=== PATIENT | male | born 1960 | race Two or more races ===

== ENCOUNTER 2020-02-14 10:17 | Outpatient (CLI) | payer MEDICARE, MEDICAID ==
[2020-02-14 11:07] LABS: BASOPHILS # (AUTO) 0.1 /CMM (0.0-0.2); BASOPHILS % (AUTO) 0.8 % (0.0-2.0); EOSINOPHILS % (AUTO) 1.3 % (0.0-6.0); HEMATOCRIT 43 % (39-51); LYMPHOCYTES % (AUTO) 27.2 % (20.0-44.0); MEAN CORPUSCULAR HGB CONC 33 g/dl (31.0-36.0); MEAN CORPUSCULAR VOLUME 91 fL (80-96); MONOCYTES # (AUTO) 0.4 /CMM (0.1-1.30); MONOCYTES % (AUTO) 5.2 % (2.0-12.0); NEUTROPHILS # (AUTO) 4.7 /CMM (1.8-8.9); NEUTROPHILS % (AUTO) 65.5 % (43.0-81.0); PLATELET COUNT (AUTO) 291 /CMM (150-450); RED BLOOD CELL COUNT(AUTO) 4.74 MIL/uL (4.5-6.0); WHITE BLOOD COUNT (AUTO) 7.2 K/uL (4.3-11.0)
[2020-02-14 11:33] LABS: ALBUMIN 3.5 g/dL (3.4-5.0); BILIRUBIN,TOTAL 0.3 mg/dL (0.2-1.0); CALCIUM, SERUM 8.9 mg/dL (8.5-10.1); CREATININE 3.2 mg/dL (0.6-1.3); MAGNESIUM 2.3 mg/dL (1.8-2.4); PHOSPHORUS 3.5 mg/dL (2.5-4.9); POTASSIUM 4.7 mmol/L (3.5-5.1)
[2020-02-14 11:42] LABS: THYROID STIMULATING HORMONE 1.095 uIU/mL (0.358-3.74)
[2020-02-14 11:58] LABS: BILIRUBIN,URINE NEGATIVE (NEGATIVE); BLOOD, URINE NEGATIVE Ery/uL (NEGATIVE); COLOR,URINE YELLOW (YELLOW); LEUKOCYTE ESTERASE ,URINE NEGATIVE (NEGATIVE); NITRITE, URINE NEGATIVE (NEGATIVE); PROTEIN,URINE TRACE mg/dl (NEGATIVE); UGLUCOSE 100 MG/DL mg/dL (NEGATIVE); UROBILINOGEN,URINE 0.2 EU/dL (0.2)
[2020-02-14 11:58] LABS: C-REACTIVE PROTEIN 2.6 mg/dL (0.0-0.9)
[2020-02-14 17:40] LABS: BACTERIA,URINE Few /HPF (None Seen); RBC,URINE 0-2 /HPF (0-2); SPERM,URINE Few /HPF (None Seen); SQUAMOUS EPITHELIAL CELL,UR Few /HPF (None Seen); URINE AMORPHOUS URATE Moderate /HPF (None Seen)
[2020-02-15 08:12] LABS: FOLIC ACID > 20.0 ng/mL (>3.0)
== END 2020-02-14 23:59 | disposition home or self-care (01) ==
LOC: MSC 10:17
PROVIDERS: ATTEND Internal Medicine
DX: N40.0 Benign prostatic hyperplasia without lower urinary tract symptoms (principal); I10 Essential (primary) hypertension; E11.9 Type 2 diabetes mellitus without complications; I25.10 Atherosclerotic heart disease of native coronary artery without angina pectoris; Z98.61 Coronary angioplasty status; Z86.73 Personal history of transient ischemic attack (TIA), and cerebral infarction without residual deficits; E78.5 Hyperlipidemia, unspecified
CPT/HCPCS: 36415; 80053; 80061; 81001; 82043; 82306; 82570; 82607; 82746; 83036; 83735; 84100; 84155; 84439; 84443; 85025; 85652; 86140; G0463

== ENCOUNTER 2020-08-07 09:35 | Outpatient (CLI) | payer MEDICARE, MEDICAID ==
[2020-08-07 11:07] LABS: BASOPHILS % (AUTO) 0.6 % (0.0-2.0); EOSINOPHILS % (AUTO) 1.4 % (0.0-6.0); HEMATOCRIT 47 % (39-51); HEMOGLOBIN 15.4 g/dL (13.5-17.5); LYMPHOCYTES # (AUTO) 2.6 /CMM (0.8-4.8); LYMPHOCYTES % (AUTO) 32.2 % (20.0-44.0); MEAN CORPUSCULAR HGB CONC 33 g/dl (31.0-36.0); MEAN CORPUSCULAR VOLUME 90 fL (80-96); MONOCYTES # (AUTO) 0.6 /CMM (0.1-1.30); MONOCYTES % (AUTO) 7.6 % (2.0-12.0); NEUTROPHILS # (AUTO) 4.7 /CMM (1.8-8.9); NEUTROPHILS % (AUTO) 58.2 % (43.0-81.0); PLATELET COUNT (AUTO) 284 /CMM (150-450); RED BLOOD CELL COUNT(AUTO) 5.18 MIL/uL (4.5-6.0); WHITE BLOOD COUNT (AUTO) 8.1 K/uL (4.3-11.0)
[2020-08-07 11:13] LABS: ALBUMIN 3.8 g/dL (3.4-5.0); BILIRUBIN,TOTAL 0.5 mg/dL (0.2-1.0); CALCIUM, SERUM 10.2 mg/dL (8.5-10.1); CREATININE 2.9 mg/dL (0.6-1.3); POTASSIUM 4.8 mmol/L (3.5-5.1); TOTAL PROTEIN, SERUM 8.4 g/dL (6.4-8.2)
== END 2020-08-07 23:59 | disposition home or self-care (01) ==
LOC: MSC 09:35
PROVIDERS: ATTEND Internal Medicine
DX: Z51.89 Encounter for other specified aftercare (principal); I49.9 Cardiac arrhythmia, unspecified; Z79.01 Long term (current) use of anticoagulants; I42.9 Cardiomyopathy, unspecified; Z95.810 Presence of automatic (implantable) cardiac defibrillator; I10 Essential (primary) hypertension; E11.9 Type 2 diabetes mellitus without complications; Z79.4 Long term (current) use of insulin; I25.10 Atherosclerotic heart disease of native coronary artery without angina pectoris; Z95.1 Presence of aortocoronary bypass graft; Z86.73 Personal history of transient ischemic attack (TIA), and cerebral infarction without residual deficits; N40.0 Benign prostatic hyperplasia without lower urinary tract symptoms; E78.5 Hyperlipidemia, unspecified; Z79.899 Other long term (current) drug therapy
CPT/HCPCS: 36415; 80053; 83036; 85025; G0463

== ENCOUNTER 2020-08-16 12:15 | Outpatient (CLI) | payer MEDICARE, OTHER | END 2020-08-16 23:59 | disposition home or self-care (01) | LOC: MSC 12:15 | PROVIDERS: ATTEND Internal Medicine | DX: Z01.818 Encounter for other preprocedural examination (principal); H26.9 Unspecified cataract; I12.9 Hypertensive chronic kidney disease with stage 1 through stage 4 chronic kidney disease, or unspecified chronic kidney disease; E11.22 Type 2 diabetes mellitus with diabetic chronic kidney disease; N18.4 Chronic kidney disease, stage 4 (severe); Z79.4 Long term (current) use of insulin; I42.9 Cardiomyopathy, unspecified; Z95.810 Presence of automatic (implantable) cardiac defibrillator; I49.9 Cardiac arrhythmia, unspecified; I25.10 Atherosclerotic heart disease of native coronary artery without angina pectoris; Z95.1 Presence of aortocoronary bypass graft; Z86.73 Personal history of transient ischemic attack (TIA), and cerebral infarction without residual deficits; N40.0 Benign prostatic hyperplasia without lower urinary tract symptoms; E78.5 Hyperlipidemia, unspecified; Z79.899 Other long term (current) drug therapy ==

== ENCOUNTER 2021-01-01 09:50 | Outpatient (CLI) | payer MEDICARE, OTHER ==
[2021-01-01 11:18] LABS: BASOPHILS % (AUTO) 0.6 % (0.0-2.0); EOSINOPHILS % (AUTO) 1.5 % (0.0-6.0); HEMATOCRIT 46 % (39-51); HEMOGLOBIN 15.2 g/dL (13.5-17.5); LYMPHOCYTES # (AUTO) 1.9 K/uL (0.8-4.8); MEAN CORPUSCULAR HGB CONC 33 g/dl (31.0-36.0); MEAN CORPUSCULAR VOLUME 91 fL (80-96); MONOCYTES # (AUTO) 0.4 K/uL (0.1-1.30); NEUTROPHILS # (AUTO) 4.2 K/uL (1.8-8.9); NEUTROPHILS % (AUTO) 62.9 % (43.0-81.0); PLATELET COUNT (AUTO) 325 K/uL (150-450); RED BLOOD CELL COUNT(AUTO) 5.01 MIL/uL (4.5-6.0); WHITE BLOOD COUNT (AUTO) 6.7 K/uL (4.3-11.0)
[2021-01-01 12:21] LABS: C-REACTIVE PROTEIN 0.3 mg/dL (0.0-0.9); PROSTATE SPECIFIC ANTIGEN SCR 0.65 ng/mL (0.00-4.00); THYROID STIMULATING HORMONE 1.136 uIU/mL (0.358-3.74)
[2021-01-01 12:27] LABS: ALBUMIN 3.6 g/dL (3.4-5.0); BILIRUBIN,TOTAL 0.4 mg/dL (0.2-1.0); CALCIUM, SERUM 8.7 mg/dL (8.5-10.1); CREATININE 2.6 mg/dL (0.6-1.3); MAGNESIUM 2.1 mg/dL (1.8-2.4); PHOSPHORUS 3.1 mg/dL (2.5-4.9); POTASSIUM 4.6 mmol/L (3.5-5.1); TOTAL PROTEIN, SERUM 8.3 g/dL (6.4-8.2)
== END 2021-01-01 23:59 | disposition home or self-care (01) ==
LOC: MSC 09:50
PROVIDERS: ATTEND Internal Medicine
DX: I49.9 Cardiac arrhythmia, unspecified (principal); Z95.818 Presence of other cardiac implants and grafts; Z79.82 Long term (current) use of aspirin; R33.9 Retention of urine, unspecified; N40.0 Benign prostatic hyperplasia without lower urinary tract symptoms; I13.0 Hypertensive heart and chronic kidney disease with heart failure and stage 1 through stage 4 chronic kidney disease, or unspecified chronic kidney disease; E11.22 Type 2 diabetes mellitus with diabetic chronic kidney disease; N18.4 Chronic kidney disease, stage 4 (severe); I50.9 Heart failure, unspecified; Z79.4 Long term (current) use of insulin; I25.10 Atherosclerotic heart disease of native coronary artery without angina pectoris; E78.5 Hyperlipidemia, unspecified
CPT/HCPCS: 36415; 80053; 80061; 82306; 82607; 82746; 83036; 83735; 84100; 84153; 84439; 84443; 85025; 85652; 86140; G0463

== ENCOUNTER 2021-08-06 10:17 | Outpatient (CLI) | payer MEDICARE, OTHER ==
[2021-08-06 11:49] LABS: BASOPHILS % (AUTO) 0.7 % (0.0-2.0); EOSINOPHILS % (AUTO) 2.8 % (0.0-6.0); HEMATOCRIT 44 % (39-51); HEMOGLOBIN 14.6 g/dL (13.5-17.5); LYMPHOCYTES # (AUTO) 2.2 K/uL (0.8-4.8); LYMPHOCYTES % (AUTO) 33.9 % (20.0-44.0); MEAN CORPUSCULAR HGB CONC 33 g/dl (31.0-36.0); MEAN CORPUSCULAR VOLUME 85 fL (80-96); MONOCYTES # (AUTO) 0.5 K/uL (0.1-1.30); MONOCYTES % (AUTO) 7.2 % (2.0-12.0); NEUTROPHILS # (AUTO) 3.6 K/uL (1.8-8.9); NEUTROPHILS % (AUTO) 55.4 % (43.0-81.0); PLATELET COUNT (AUTO) 292 K/uL (150-450); RED BLOOD CELL COUNT(AUTO) 5.15 MIL/uL (4.5-6.0); WHITE BLOOD COUNT (AUTO) 6.5 K/uL (4.3-11.0)
[2021-08-06 12:19] LABS: FREE T4 (FREE THYROXINE) 1.18 ng/dL (0.76-1.46); THYROID STIMULATING HORMONE 1.529 uIU/mL (0.358-3.74)
[2021-08-06 12:31] LABS: C-REACTIVE PROTEIN 1.3 mg/dL (0.0-0.9)
[2021-08-06 12:35] LABS: BILIRUBIN,TOTAL 0.6 mg/dL (0.2-1.0); CALCIUM, SERUM 8.3 mg/dL (8.5-10.1); MAGNESIUM 2.2 mg/dL (1.8-2.4); PHOSPHORUS 4.1 mg/dL (2.5-4.9); POTASSIUM 3.8 mmol/L (3.5-5.1); TOTAL PROTEIN, SERUM 7.2 g/dL (6.4-8.2)
== END 2021-08-06 23:59 | disposition home or self-care (01) ==
LOC: MSC 10:17
PROVIDERS: ATTEND Internal Medicine
DX: I49.9 Cardiac arrhythmia, unspecified (principal); G93.3 Postviral and related fatigue syndromes; E11.22 Type 2 diabetes mellitus with diabetic chronic kidney disease; I13.0 Hypertensive heart and chronic kidney disease with heart failure and stage 1 through stage 4 chronic kidney disease, or unspecified chronic kidney disease; N18.4 Chronic kidney disease, stage 4 (severe); I50.9 Heart failure, unspecified; Z79.4 Long term (current) use of insulin; N40.0 Benign prostatic hyperplasia without lower urinary tract symptoms; I25.10 Atherosclerotic heart disease of native coronary artery without angina pectoris; E78.5 Hyperlipidemia, unspecified
CPT/HCPCS: 36415; 80053; 80061; 83036; 83735; 84100; 84439; 84443; 85025; 85652; 86140; G0463

== ENCOUNTER → 2021-08-09 | Outpatient (CLI) | payer MEDICARE, OTHER | END | disposition home or self-care (01) | LOC: MSC 14:00 | PROVIDERS: ATTEND Internal Medicine | DX: E78.1 Pure hyperglyceridemia (principal); I49.9 Cardiac arrhythmia, unspecified; Z79.82 Long term (current) use of aspirin; E11.22 Type 2 diabetes mellitus with diabetic chronic kidney disease; I13.0 Hypertensive heart and chronic kidney disease with heart failure and stage 1 through stage 4 chronic kidney disease, or unspecified chronic kidney disease; N18.4 Chronic kidney disease, stage 4 (severe); I50.9 Heart failure, unspecified; Z79.4 Long term (current) use of insulin; N40.0 Benign prostatic hyperplasia without lower urinary tract symptoms; I25.10 Atherosclerotic heart disease of native coronary artery without angina pectoris ==

== ENCOUNTER 2021-10-22 10:34 | Outpatient (CLI) | payer MEDICARE, OTHER | END 2021-10-22 23:59 | disposition home or self-care (01) | LOC: MSC 10:34 | PROVIDERS: ATTEND Internal Medicine | DX: I49.9 Cardiac arrhythmia, unspecified (principal); I34.0 Nonrheumatic mitral (valve) insufficiency; Z95.2 Presence of prosthetic heart valve; E11.22 Type 2 diabetes mellitus with diabetic chronic kidney disease; I13.0 Hypertensive heart and chronic kidney disease with heart failure and stage 1 through stage 4 chronic kidney disease, or unspecified chronic kidney disease; N18.4 Chronic kidney disease, stage 4 (severe); I50.9 Heart failure, unspecified; Z79.4 Long term (current) use of insulin; E78.5 Hyperlipidemia, unspecified; N40.0 Benign prostatic hyperplasia without lower urinary tract symptoms; I25.10 Atherosclerotic heart disease of native coronary artery without angina pectoris ==

== ENCOUNTER → 2021-12-05 | Outpatient (CLI) | payer MEDICARE, OTHER | END | disposition home or self-care (01) | LOC: MSC 10:30 | PROVIDERS: ATTEND Internal Medicine | DX: E11.22 Type 2 diabetes mellitus with diabetic chronic kidney disease (principal); E11.65 Type 2 diabetes mellitus with hyperglycemia; I13.0 Hypertensive heart and chronic kidney disease with heart failure and stage 1 through stage 4 chronic kidney disease, or unspecified chronic kidney disease; N18.4 Chronic kidney disease, stage 4 (severe); I50.9 Heart failure, unspecified; Z79.4 Long term (current) use of insulin; E78.1 Pure hyperglyceridemia; I49.9 Cardiac arrhythmia, unspecified; I34.0 Nonrheumatic mitral (valve) insufficiency; Z95.2 Presence of prosthetic heart valve; I25.10 Atherosclerotic heart disease of native coronary artery without angina pectoris; N40.0 Benign prostatic hyperplasia without lower urinary tract symptoms ==

== ENCOUNTER 2022-05-13 11:08 | Outpatient (CLI) | payer MEDICARE, OTHER ==
[2022-05-13 11:35] LABS: BASOPHILS % (AUTO) 0.5 % (0.0-2.0); EOSINOPHILS % (AUTO) 1.3 % (0.0-6.0); HEMATOCRIT 48 % (39-51); HEMOGLOBIN 15.9 g/dL (13.5-17.5); LYMPHOCYTES # (AUTO) 2.3 K/uL (0.8-4.8); LYMPHOCYTES % (AUTO) 30.6 % (20.0-44.0); MEAN CORPUSCULAR HGB CONC 33 g/dl (31.0-36.0); MEAN CORPUSCULAR VOLUME 87 fL (80-96); MONOCYTES # (AUTO) 0.5 K/uL (0.1-1.30); MONOCYTES % (AUTO) 6.1 % (2.0-12.0); NEUTROPHILS # (AUTO) 4.6 K/uL (1.8-8.9); NEUTROPHILS % (AUTO) 61.5 % (43.0-81.0); PLATELET COUNT (AUTO) 194 K/uL (150-450); RED BLOOD CELL COUNT(AUTO) 5.53 MIL/uL (4.5-6.0); WHITE BLOOD COUNT (AUTO) 7.4 K/uL (4.3-11.0)
[2022-05-13 11:50] LABS: URINE TOTAL PROTEIN 65.3 mg/dL (0-11.9)
[2022-05-13 11:51] LABS: BILIRUBIN,URINE NEGATIVE (NEGATIVE); COLOR,URINE YELLOW (YELLOW); LEUKOCYTE ESTERASE ,URINE NEGATIVE (NEGATIVE); NITRITE, URINE NEGATIVE (NEGATIVE); PH,URINE 5.5 (5.0-8.0); PROTEIN,URINE 1+ mg/dl (NEGATIVE); UGLUCOSE 3+ mg/dL (NEGATIVE); UROBILINOGEN,URINE 0.2 EU/dL (0.2)
[2022-05-13 12:18] LABS: BACTERIA,URINE Few /HPF (None Seen); RBC,URINE 0-2 /HPF (0-2); SQUAMOUS EPITHELIAL CELL,UR Few /HPF (None Seen); WBC,URINE 0-2 /HPF (0-3)
[2022-05-13 12:25] LABS: ALBUMIN 3.3 g/dL (3.4-5.0); BILIRUBIN,TOTAL 0.7 mg/dL (0.2-1.0); CALCIUM, SERUM 8.5 mg/dL (8.5-10.1); MAGNESIUM 2.2 mg/dL (1.8-2.4); PHOSPHORUS 2.8 mg/dL (2.5-4.9); POTASSIUM 4.7 mmol/L (3.5-5.1); TOTAL PROTEIN, SERUM 7.5 g/dL (6.4-8.2)
[2022-05-13 12:32] LABS: C-REACTIVE PROTEIN 1.1 mg/dL (0.0-0.9); FREE T4 (FREE THYROXINE) 1.02 ng/dL (0.76-1.46); THYROID STIMULATING HORMONE 1.055 uIU/mL (0.358-3.74)
== END 2022-05-13 23:59 | disposition home or self-care (01) ==
LOC: MSC 11:08
PROVIDERS: ATTEND Internal Medicine
DX: M25.512 Pain in left shoulder (principal); R19.7 Diarrhea, unspecified; E11.22 Type 2 diabetes mellitus with diabetic chronic kidney disease; E11.65 Type 2 diabetes mellitus with hyperglycemia; I13.0 Hypertensive heart and chronic kidney disease with heart failure and stage 1 through stage 4 chronic kidney disease, or unspecified chronic kidney disease; N18.4 Chronic kidney disease, stage 4 (severe); I50.9 Heart failure, unspecified; Z79.4 Long term (current) use of insulin; E87.1 Hypo-osmolality and hyponatremia; E78.1 Pure hyperglyceridemia; I49.9 Cardiac arrhythmia, unspecified; I34.0 Nonrheumatic mitral (valve) insufficiency; Z95.2 Presence of prosthetic heart valve; I25.10 Atherosclerotic heart disease of native coronary artery without angina pectoris; N40.0 Benign prostatic hyperplasia without lower urinary tract symptoms
CPT/HCPCS: 80061; 73030; 85025; 83735; 83036; 84100; 85652; 81001; 36415; 84439; 82746; 84443; 82607; 80053; 86140; 82306; 82043; 82570; 84155; G0463

== ENCOUNTER 2022-05-15 11:30 | Outpatient (CLI) | payer MEDICARE, OTHER | END 2022-05-15 23:59 | disposition home or self-care (01) | LOC: MSC 11:30 | PROVIDERS: ATTEND Internal Medicine | DX: E11.22 Type 2 diabetes mellitus with diabetic chronic kidney disease (principal); E11.65 Type 2 diabetes mellitus with hyperglycemia; I13.0 Hypertensive heart and chronic kidney disease with heart failure and stage 1 through stage 4 chronic kidney disease, or unspecified chronic kidney disease; N18.4 Chronic kidney disease, stage 4 (severe); I50.9 Heart failure, unspecified; Z79.4 Long term (current) use of insulin; E78.1 Pure hyperglyceridemia; M25.512 Pain in left shoulder; R19.7 Diarrhea, unspecified; E87.1 Hypo-osmolality and hyponatremia; I49.9 Cardiac arrhythmia, unspecified; I34.0 Nonrheumatic mitral (valve) insufficiency; Z95.2 Presence of prosthetic heart valve; I25.10 Atherosclerotic heart disease of native coronary artery without angina pectoris; N40.0 Benign prostatic hyperplasia without lower urinary tract symptoms ==

== ENCOUNTER 2022-08-05 09:45 | Outpatient (CLI) | payer MEDICARE, OTHER ==
[2022-08-05 11:31] LABS: BASOPHILS % (AUTO) 0.6 % (0.0-2.0); EOSINOPHILS % (AUTO) 2.8 % (0.0-6.0); HEMATOCRIT 41 % (39-51); HEMOGLOBIN 13.4 g/dL (13.5-17.5); LYMPHOCYTES # (AUTO) 2.3 K/uL (0.8-4.8); LYMPHOCYTES % (AUTO) 33.8 % (20.0-44.0); MEAN CORPUSCULAR HGB CONC 32 g/dl (31.0-36.0); MEAN CORPUSCULAR VOLUME 93 fL (80-96); MONOCYTES # (AUTO) 0.4 K/uL (0.1-1.30); NEUTROPHILS # (AUTO) 3.9 K/uL (1.8-8.9); NEUTROPHILS % (AUTO) 56.8 % (43.0-81.0); PLATELET COUNT (AUTO) 203 K/uL (150-450); RED BLOOD CELL COUNT(AUTO) 4.46 MIL/uL (4.5-6.0); WHITE BLOOD COUNT (AUTO) 6.9 K/uL (4.3-11.0)
[2022-08-05 11:50] LABS: C-REACTIVE PROTEIN 0.2 mg/dL (0.0-0.9)
[2022-08-05 11:52] LABS: ALBUMIN 3.7 g/dL (3.4-5.0); BILIRUBIN,TOTAL 0.7 mg/dL (0.2-1.0); CALCIUM, SERUM 9.4 mg/dL (8.5-10.1); CREATININE 2.9 mg/dL (0.6-1.3); MAGNESIUM 2.3 mg/dL (1.8-2.4); PHOSPHORUS 5.3 mg/dL (2.5-4.9); POTASSIUM 5.4 mmol/L (3.5-5.1); TOTAL PROTEIN, SERUM 7.9 g/dL (6.4-8.2)
== END 2022-08-05 23:59 | disposition home or self-care (01) ==
LOC: MSC 09:45
PROVIDERS: ATTEND Internal Medicine
DX: M25.512 Pain in left shoulder (principal); R61 Generalized hyperhidrosis; E11.22 Type 2 diabetes mellitus with diabetic chronic kidney disease; E11.65 Type 2 diabetes mellitus with hyperglycemia; I13.0 Hypertensive heart and chronic kidney disease with heart failure and stage 1 through stage 4 chronic kidney disease, or unspecified chronic kidney disease; N18.4 Chronic kidney disease, stage 4 (severe); I50.9 Heart failure, unspecified; Z79.4 Long term (current) use of insulin; E78.1 Pure hyperglyceridemia; R19.7 Diarrhea, unspecified; E87.1 Hypo-osmolality and hyponatremia; I49.9 Cardiac arrhythmia, unspecified; I34.0 Nonrheumatic mitral (valve) insufficiency; Z95.2 Presence of prosthetic heart valve; I25.10 Atherosclerotic heart disease of native coronary artery without angina pectoris; N40.0 Benign prostatic hyperplasia without lower urinary tract symptoms
CPT/HCPCS: 80061; 85025; 83735; 83036; 84100; 85652; 36415; 80053; 86140; G0463

== ENCOUNTER 2022-10-01 12:33 | Outpatient (CLI) | payer MEDICARE, OTHER ==
[2022-10-01 14:08] LABS: ALBUMIN 3.8 g/dL (3.4-5.0); BILIRUBIN,TOTAL 0.9 mg/dL (0.2-1.0); CALCIUM, SERUM 9.6 mg/dL (8.5-10.1); CREATININE 3.3 mg/dL (0.6-1.3); POTASSIUM 5.4 mmol/L (3.5-5.1); TOTAL PROTEIN, SERUM 8.5 g/dL (6.4-8.2)
== END 2022-10-01 23:59 | disposition home or self-care (01) ==
LOC: LAB 12:33
PROVIDERS: ATTEND Internal Medicine
DX: N18.9 Chronic kidney disease, unspecified (principal)
CPT/HCPCS: 36415; 80053-TC

== ENCOUNTER → 2022-11-21 | Outpatient (CLI) | payer MEDICARE, OTHER | END | disposition home or self-care (01) | LOC: MSC 15:00 | PROVIDERS: ATTEND Internal Medicine | DX: E11.22 Type 2 diabetes mellitus with diabetic chronic kidney disease (principal); E11.65 Type 2 diabetes mellitus with hyperglycemia; I13.0 Hypertensive heart and chronic kidney disease with heart failure and stage 1 through stage 4 chronic kidney disease, or unspecified chronic kidney disease; N18.4 Chronic kidney disease, stage 4 (severe); I50.9 Heart failure, unspecified; Z79.4 Long term (current) use of insulin; Z79.85 Long-term (current) use of injectable non-insulin antidiabetic drugs; E11.621 Type 2 diabetes mellitus with foot ulcer; L97.508 Non-pressure chronic ulcer of other part of unspecified foot with other specified severity; I73.9 Peripheral vascular disease, unspecified; Z95.820 Peripheral vascular angioplasty status with implants and grafts; E78.5 Hyperlipidemia, unspecified; E87.1 Hypo-osmolality and hyponatremia; R19.7 Diarrhea, unspecified; I49.9 Cardiac arrhythmia, unspecified; M25.512 Pain in left shoulder; N40.0 Benign prostatic hyperplasia without lower urinary tract symptoms; I25.10 Atherosclerotic heart disease of native coronary artery without angina pectoris ==

== ENCOUNTER 2023-03-04 12:37 | Inpatient (IN) | payer MEDICARE, OTHER ==
[~2023-03-04] VITALS: Ht 170.2 cm; Wt 82.6 kg
[2023-03-04] MEDS ORDERED: IV NS 0.9% 1,000 ML BAG IV ONE ×2 (14:30→16:00)
[2023-03-04] MEDS ORDERED: PIPERACILLIN /TAZOBACTAM 3.375 G in IV D5W 50 ML IV ONE (14:30)
[2023-03-04] MEDS ORDERED: VANCOMYCIN 1 GM in IV D5W 250 ML IV ONE (14:30)
[2023-03-04] MEDS ORDERED: VANCOMYCIN 1 GM /D5W 250 ML PB IV ONE (14:54)
[2023-03-04] MEDS ORDERED: PIPERACI/TAZO 3.375GM/D5W 50ML PB IV ONE (14:54)
[2023-03-04] MEDS ORDERED: DOCU100C36 PO (15:05)
[2023-03-04] MEDS ORDERED: METO100T14 PO (15:05)
[2023-03-04] MEDS ORDERED: INSU3INS8 SQ (15:05)
[2023-03-04] MEDS ORDERED: CLON0.1T PO (15:05)
[2023-03-04] MEDS ORDERED: ATOR40TA PO (15:05)
[2023-03-04] MEDS ORDERED: SILD20TA2 PO (15:05)
[2023-03-04] MEDS ORDERED: FURO-144 PO (15:05)
[2023-03-04] MEDS ORDERED: ICOS1CAP PO (15:05)
[2023-03-04] MEDS ORDERED: INSU100I26 SQ (15:05)
[2023-03-04] MEDS ORDERED: TRAZ-182 PO (15:05)
[2023-03-04] MEDS ORDERED: TAMS-12 PO (15:05)
[2023-03-04] MEDS ORDERED: LOSA25TA27 PO (15:05)
[2023-03-04] MEDS ORDERED: DICL100G26 TP (15:05)
[2023-03-04] MEDS ORDERED: SPIR25TA6 PO (15:05)
[2023-03-04] MEDS ORDERED: CIPR500T5 PO (15:05)
[2023-03-04] MEDS ORDERED: FOLI0.8T3 PO (15:05)
[2023-03-04 15:13] LABS: BASOPHILS # (AUTO) 0.1 K/uL (0.0-0.2); BASOPHILS % (AUTO) 0.4 % (0.0-2.0); EOSINOPHILS # (AUTO) 0.1 K/uL (0.0-0.7); EOSINOPHILS % (AUTO) 0.8 % (0.0-6.0); HEMATOCRIT 28 % (39-51); HEMOGLOBIN 8.8 g/dL (13.5-17.5); LYMPHOCYTES # (AUTO) 1.3 K/uL (0.8-4.8); LYMPHOCYTES % (AUTO) 8.4 % (20.0-44.0); MEAN CORPUSCULAR HEMOGLOBIN 27 PG (26.0-33.0); MEAN CORPUSCULAR HGB CONC 32 g/dl (31.0-36.0); MEAN CORPUSCULAR VOLUME 85 fL (80-96); MONOCYTES # (AUTO) 0.7 K/uL (0.1-1.30); MONOCYTES % (AUTO) 4.5 % (2.0-12.0); NEUTROPHILS # (AUTO) 13.7 K/uL (1.8-8.9); NEUTROPHILS % (AUTO) 85.9 % (43.0-81.0); PLATELET COUNT (AUTO) 271 K/uL (150-450); RED BLOOD CELL COUNT(AUTO) 3.23 MIL/uL (4.5-6.0); RED CELL DISTRIBUTION WIDTH 17.8 % (11.5-15.0)
[2023-03-04 15:27] LABS: INR 1.05 (0.91-1.10); PARTIAL THROMBOPLASTIN TIME 32.9 SEC (24.3-34.3); PROTHROMBIN TIME 11.1 SECS (9.2-11.1)
[2023-03-04 15:28] LABS: CALCIUM, SERUM 9.1 mg/dL (8.5-10.1); CARBON DIOXIDE 19 mmol/L (21-32); CHLORIDE 92 mmol/L (98-107); CREATININE 3.7 mg/dL (0.6-1.3); GLUCOSE 368 mg/dL (74-106); POTASSIUM 4.3 mmol/L (3.5-5.1); SODIUM SERUM 124 mmol/L (136-145); UREA NITROGEN, BLOOD 72 mg/dL (7-18)
[2023-03-04 15:33] LABS: LACTIC ACID 1.3 mmol/L (0.4-2.0)
[2023-03-04 15:40] LABS: ALANINE AMINOTRANSFERASE 77 U/L (12-78); ALBUMIN 2.5 g/dL (3.4-5.0); ALKALINE PHOSPHATASE 246 U/L (46-116); ASPARTATE AMINOTRANSFERASE 63 U/L (15-37); BILIRUBIN,DIRECT 0.3 mg/dL (0.0-0.2); BILIRUBIN,TOTAL 0.6 mg/dL (0.2-1.0); TOTAL PROTEIN, SERUM 7.8 g/dL (6.4-8.2)
[2023-03-04] MEDS ORDERED: ACETAMINOPHEN 325 MG TABLET PO PRN (17:00)
[2023-03-04] MEDS ORDERED: Z GUARD REMEDY 4 OZ OINT TP PRN (17:00)
[2023-03-04] MEDS ORDERED: Medication Not On Formulary EA (Icosapent Ethyl (Vascepa) 1 GM) PO SCH (17:00)
[2023-03-04] MEDS ORDERED: MAG HYDROX/AL HYDROX/SIMETH 30 ML UDC PO PRN (17:00)
[2023-03-04] MEDS: DOCUSATE SODIUM 100 MG CAPSULE PO SCH (17:00)
[2023-03-04] MEDS ORDERED: MAGNESIUM HYDROXIDE 30 ML UDC PO PRN (17:00)
[2023-03-04] MEDS ORDERED: DEXTROSE 50%-WATER 50 ML DISP.SYRIN IV PRN (17:00)
[2023-03-04] MEDS ORDERED: ZOLPIDEM TARTRATE 5 MG TABLET PO PRN (17:00)
[2023-03-04] MEDS: BLOOD SUGAR DIAGNOSTIC 1 EACH STRIP IN SCH ×2 (17:30→23:55)
[2023-03-04] MEDS ORDERED: DOCUSATE SODIUM 100 MG CAPSULE PO ONE (17:55)
[2023-03-04] MEDS ORDERED: PIPERACILLIN /TAZOBACTAM 3.375 G in IV D5W 50 ML IV SCH (18:00)
[2023-03-04 22:45] VITALS: BP 136/60; TEMP 98.4; O2SAT 100
[2023-03-04] MEDS: IV NS 0.9% 1,000 ML IV PRN (23:44)
[2023-03-04] MEDS: TAMSULOSIN 0.4 MG CAP.SR.24H PO SCH (23:56)
[2023-03-04] MEDS ORDERED: PIPERCILLIN/TAZOBACTAM 2.25GM/D5W 50MLPB IV ONE (23:56)
[2023-03-04] MEDS: TRAZODONE 50 MG TABLET PO SCH (23:56)
[2023-03-05] VITALS: BP 103/46; TEMP 98; O2SAT 100
[2023-03-05] MEDS: PIPERACILLIN /TAZOBACTAM 2.25 G in IV D5W 50 ML IV SCH ×4 (00:10→22:54)
[2023-03-05] MEDS: INSULIN REGULAR, HUMAN 100 UNIT/ML 3 ML VIAL SQ PRN ×4 (00:22→21:32)
[2023-03-05 01:31] VITALS: BP 136/60; TEMP 98.4; O2SAT 100
[2023-03-05] MEDS: HYDROCODONE/APAP 10/325MG TABLET PO PRN ×3 (02:08→16:10)
[2023-03-05 04:00] VITALS: BP 114/55; TEMP 97.8; O2SAT 99
[2023-03-05] MEDS ORDERED: PIPERCILLIN/TAZOBACTAM 2.25GM/D5W 50MLPB IV ONE (06:00)
[2023-03-05] MEDS: BLOOD SUGAR DIAGNOSTIC 1 EACH STRIP IN SCH ×4 (07:30→21:27)
[2023-03-05] MEDS: DOCUSATE SODIUM 100 MG CAPSULE PO SCH ×2 (08:56→16:10)
[2023-03-05] MEDS: FOLIC ACID 1 MG TABLET PO SCH (08:56)
[2023-03-05] MEDS: CLONIDINE HCL 0.1 MG TABLET PO SCH (08:56)
[2023-03-05] MEDS: METOPROLOL SUCCINATE 50 MG TAB.SR.24H PO SCH (08:57)
[2023-03-05] MEDS: ATORVASTATIN 40 MG TABLET PO SCH (08:57)
[2023-03-05] MEDS ORDERED: LOSARTAN POTASSIUM 25 MG TABLET PO SCH (09:00)
[2023-03-05 11:30] VITALS: BP 119/59; TEMP 98; O2SAT 99
[2023-03-05] MEDS: IV NS 0.9% 1,000 ML IV PRN (14:15)
[2023-03-05] MEDS ORDERED: VANCOMYCIN 500 MG in IV D5W 100 ML IV SCH (15:00)
[2023-03-05 16:14] LABS: CREATININE, URINE 72.3 MG/DL (30.0-125.0)
[2023-03-05 16:19] LABS: APPEARANCE,URINE CLEAR (CLEAR); BILIRUBIN,URINE NEGATIVE (NEGATIVE); BLOOD, URINE NEGATIVE Ery/uL (NEGATIVE); COLOR,URINE YELLOW (YELLOW); KETONES,URINE NEGATIVE (NEGATIVE); LEUKOCYTE ESTERASE ,URINE NEGATIVE (NEGATIVE); NITRITE, URINE NEGATIVE (NEGATIVE); PH,URINE 5.5 (5.0-8.0); PROTEIN,URINE 1+ mg/dl (NEGATIVE); UGLUCOSE TRACE mg/dL (NEGATIVE); UROBILINOGEN,URINE 0.2 EU/dL (0.2)
[2023-03-05 16:44] LABS: ADD URINE CULTURE NO; BACTERIA,URINE None seen /HPF (None Seen); RBC,URINE 0-2 /HPF (0-2); SQUAMOUS EPITHELIAL CELL,UR 0-2 /HPF (None Seen); URINE AMORPHOUS URATE Many /HPF (None Seen); WBC,URINE 0-2 /HPF (0-3)
[2023-03-05 16:50] LABS: EOSINOPHIL,URINE Few
[2023-03-05 20:00] VITALS: BP 101/47; TEMP 98.6; O2SAT 100
[2023-03-05] MEDS: TRAZODONE 50 MG TABLET PO SCH (21:05)
[2023-03-05] MEDS: TAMSULOSIN 0.4 MG CAP.SR.24H PO SCH (21:05)
[2023-03-06] VITALS: BP 98/41; TEMP 98.7; O2SAT 97
[2023-03-06] MEDS: HEPARIN SODIUM, PORCINE 5000 UNITS/1 ML VIAL SQ SCH ×3 (00:25→21:00)
[2023-03-06] MEDS: IV NS 0.9% 1,000 ML IV PRN (03:54)
[2023-03-06 04:00] VITALS: BP 111/51; TEMP 98.1; O2SAT 100
[2023-03-06] MEDS: PIPERACILLIN /TAZOBACTAM 2.25 G in IV D5W 50 ML IV SCH ×3 (06:07→20:02)
[2023-03-06] MEDS: BLOOD SUGAR DIAGNOSTIC 1 EACH STRIP IN SCH ×4 (06:22→21:49)
[2023-03-06] MEDS: INSULIN REGULAR, HUMAN 100 UNIT/ML 3 ML VIAL SQ PRN ×2 (06:24→22:13)
[2023-03-06 06:43] LABS: BASOPHILS % (AUTO) 0.3 % (0.0-2.0); EOSINOPHILS # (AUTO) 0.1 K/uL (0.0-0.7); EOSINOPHILS % (AUTO) 0.9 % (0.0-6.0); HEMATOCRIT 25 % (39-51); LYMPHOCYTES # (AUTO) 0.9 K/uL (0.8-4.8); LYMPHOCYTES % (AUTO) 5.8 % (20.0-44.0); MEAN CORPUSCULAR HEMOGLOBIN 28 PG (26.0-33.0); MEAN CORPUSCULAR HGB CONC 32 g/dl (31.0-36.0); MEAN CORPUSCULAR VOLUME 85 fL (80-96); MONOCYTES # (AUTO) 0.8 K/uL (0.1-1.30); MONOCYTES % (AUTO) 5.1 % (2.0-12.0); NEUTROPHILS # (AUTO) 14.1 K/uL (1.8-8.9); NEUTROPHILS % (AUTO) 87.9 % (43.0-81.0); PLATELET COUNT (AUTO) 267 K/uL (150-450); RED CELL DISTRIBUTION WIDTH 18.1 % (11.5-15.0); WHITE BLOOD COUNT (AUTO) 16.1 K/uL (4.3-11.0)
[2023-03-06 06:53] LABS: CALCIUM, SERUM 8.6 mg/dL (8.5-10.1); CREATININE 3.1 mg/dL (0.6-1.3); POTASSIUM 4.5 mmol/L (3.5-5.1)
[2023-03-06 08:30] VITALS: BP 94/52; TEMP 98.9; O2SAT 100
[2023-03-06] MEDS: CLONIDINE HCL 0.1 MG TABLET PO SCH (09:00)
[2023-03-06] MEDS: METOPROLOL SUCCINATE 50 MG TAB.SR.24H PO SCH (09:00)
[2023-03-06] MEDS: DOCUSATE SODIUM 100 MG CAPSULE PO SCH ×2 (09:49→17:00)
[2023-03-06] MEDS: ATORVASTATIN 40 MG TABLET PO SCH (09:50)
[2023-03-06] MEDS: FOLIC ACID 1 MG TABLET PO SCH (09:50)
[2023-03-06] MEDS: HYDROCODONE/APAP 10/325MG TABLET PO PRN ×2 (10:21→14:33)
[2023-03-06] MEDS ORDERED: BUPIVACAINE 0.5 % PF 150 MG/30 ML VIAL ONE (15:41)
[2023-03-06] MEDS ORDERED: LIDOCAINE HCL/MPF 1% 30 ML VIAL IJ ONE (15:41)
[2023-03-06] MEDS ORDERED: LIDOCAINE 1%-EPI 1:100,000 20 ML VIAL ONE (15:41)
[2023-03-06] MEDS ORDERED: ANESTHESIA TRAY IN PYXIS 1 EA TRAY MC ONE (15:41)
[2023-03-06 16:02] VITALS: BP 141/60; TEMP 98.3; O2SAT 97
[2023-03-06] MEDS ORDERED: INSULIN REGULAR, HUMAN 100 UNIT/ML 10 ML VIAL ONE (16:09)
[2023-03-06] MEDS ORDERED: POLYMYXIN B SULFATE 500,000 UNITS ONE (16:13)
[2023-03-06] MEDS: VANCOMYCIN HCL 0.75 GM in IV D5W 250 ML IV SCH (18:45)
[2023-03-06 20:00] VITALS: BP 119/53; TEMP 98.4; O2SAT 99
[2023-03-06] MEDS: DAKINS FULL STRENGTH (0.5%) 480 ML BOTTLE TOP SCH (21:00)
[2023-03-06] MEDS: TAMSULOSIN 0.4 MG CAP.SR.24H PO SCH (21:49)
[2023-03-06] MEDS: TRAZODONE 50 MG TABLET PO SCH (21:49)
[2023-03-07] VITALS (9 sets, daily range): BP systolic 100–119; BP diastolic 40–83; TEMP 97.9–98.4; O2SAT 99–100
[2023-03-07] MEDS: PIPERACILLIN /TAZOBACTAM 2.25 G in IV D5W 50 ML IV SCH ×5 (00:27→23:39)
[2023-03-07] MEDS: IV NS 0.9% 1,000 ML IV PRN (02:18)
[2023-03-07] MEDS: BLOOD SUGAR DIAGNOSTIC 1 EACH STRIP IN SCH ×4 (06:52→21:36)
[2023-03-07] MEDS: INSULIN REGULAR, HUMAN 100 UNIT/ML 3 ML VIAL SQ PRN ×4 (07:00→22:02)
[2023-03-07] MEDS: DOCUSATE SODIUM 100 MG CAPSULE PO SCH ×2 (08:40→17:00)
[2023-03-07] MEDS: FOLIC ACID 1 MG TABLET PO SCH (08:40)
[2023-03-07] MEDS: METOPROLOL SUCCINATE 50 MG TAB.SR.24H PO SCH (08:40)
[2023-03-07] MEDS: ATORVASTATIN 40 MG TABLET PO SCH (08:40)
[2023-03-07] MEDS: CLONIDINE HCL 0.1 MG TABLET PO SCH (08:45)
[2023-03-07] MEDS: DAKINS FULL STRENGTH (0.5%) 480 ML BOTTLE TOP SCH (08:47)
[2023-03-07] MEDS: HEPARIN SODIUM, PORCINE 5000 UNITS/1 ML VIAL SQ SCH ×2 (08:52→21:00)
[2023-03-07] MEDS ORDERED: TAMSULOSIN 0.4 MG CAP.SR.24H PO ONE (09:00)
[2023-03-07 12:07] LABS: BASOPHILS % (AUTO) 0.2 % (0.0-2.0); EOSINOPHILS # (AUTO) 0.1 K/uL (0.0-0.7); EOSINOPHILS % (AUTO) 0.3 % (0.0-6.0); HEMATOCRIT 21 % (39-51); LYMPHOCYTES # (AUTO) 2.9 K/uL (0.8-4.8); LYMPHOCYTES % (AUTO) 13.6 % (20.0-44.0); MEAN CORPUSCULAR HEMOGLOBIN 27 PG (26.0-33.0); MEAN CORPUSCULAR HGB CONC 30 g/dl (31.0-36.0); MEAN CORPUSCULAR VOLUME 89 fL (80-96); MONOCYTES # (AUTO) 0.8 K/uL (0.1-1.30); MONOCYTES % (AUTO) 3.6 % (2.0-12.0); NEUTROPHILS # (AUTO) 17.4 K/uL (1.8-8.9); NEUTROPHILS % (AUTO) 82.3 % (43.0-81.0); PLATELET COUNT (AUTO) 345 K/uL (150-450); RED BLOOD CELL COUNT(AUTO) 2.37 MIL/uL (4.5-6.0); RED CELL DISTRIBUTION WIDTH 18.7 % (11.5-15.0); WHITE BLOOD COUNT (AUTO) 21.2 K/uL (4.3-11.0)
[2023-03-07] MEDS: PANTOPRAZOLE 40 MG TABLET.DR PO SCH (12:07)
[2023-03-07 12:20] LABS: HEMOGLOBIN 6.3 g/dL (13.5-17.5)
[2023-03-07 12:34] LABS: CALCIUM, SERUM 8.5 mg/dL (8.5-10.1); CREATININE 4.4 mg/dL (0.6-1.3); POTASSIUM 5.1 mmol/L (3.5-5.1)
[2023-03-07] MEDS ORDERED: IV NS 0.9% 1,000 ML IV PRN (13:12)
[2023-03-07] MEDS: VANCOMYCIN HCL 0.75 GM in IV D5W 250 ML IV SCH (14:48)
[2023-03-07] MEDS: HYDROMORPHONE 1 MG/1 ML DISP.SYRIN IV PRN (15:07)
[2023-03-07] MEDS: Sodium Bicarbonate 100 MEQ in IV 1/2NS 1000 ML 1,000 ML IV SCH (16:19)
[2023-03-07] MEDS: ONDANSETRON HCL/PF 4 MG/2 ML VIAL IVP PRN ×3 (16:24→23:38)
[2023-03-07] MEDS ORDERED: CELLULOSE,OXIDIZED 1 EA PACK MC ONE (16:30)
[2023-03-07 17:12] LABS: ANISOCYTOSIS 1+; EOSINOPHILS % (MANUAL) 2 % (0-4); LYMPHOCYTES % (MANUAL) 12 % (16-48); MONOCYTES % (MANUAL) 2 % (0-11.0); NEUTROPHILS % (MANUAL) 84 (42-76); PLATELET ESTIMATE ADEQUATE
[2023-03-07] MEDS: TRAZODONE 50 MG TABLET PO SCH (21:35)
[2023-03-07 23:11] LABS: HIV-1 p24 ANTIGEN NON REACTIVE (NONREACTIVE); HIV-1/2 ANTIBODY NON REACTIVE (NONREACTIVE)
[2023-03-08] VITALS (11 sets, daily range): BP systolic 112–127; BP diastolic 54–77; TEMP 96.8–98.7; O2SAT 100
[2023-03-08] MEDS: BLOOD SUGAR DIAGNOSTIC 1 EACH STRIP IN SCH ×4 (05:21→21:04)
[2023-03-08] MEDS: PIPERACILLIN /TAZOBACTAM 2.25 G in IV D5W 50 ML IV SCH ×4 (05:21→23:25)
[2023-03-08] MEDS: INSULIN REGULAR, HUMAN 100 UNIT/ML 3 ML VIAL SQ PRN ×4 (05:37→21:06)
[2023-03-08] MEDS: PANTOPRAZOLE 40 MG TABLET.DR PO SCH (07:24)
[2023-03-08] MEDS: METOPROLOL SUCCINATE 50 MG TAB.SR.24H PO SCH (08:21)
[2023-03-08] MEDS: HEPARIN SODIUM, PORCINE 5000 UNITS/1 ML VIAL SQ SCH ×2 (08:22→20:29)
[2023-03-08] MEDS: CLONIDINE HCL 0.1 MG TABLET PO SCH (08:22)
[2023-03-08] MEDS: ATORVASTATIN 40 MG TABLET PO SCH (08:22)
[2023-03-08] MEDS: DOCUSATE SODIUM 100 MG CAPSULE PO SCH ×2 (08:22→16:24)
[2023-03-08] MEDS: FOLIC ACID 1 MG TABLET PO SCH (08:22)
[2023-03-08] MEDS: DAKINS FULL STRENGTH (0.5%) 480 ML BOTTLE TOP SCH (08:23)
[2023-03-08 11:57] LABS: CALCIUM, SERUM 8.1 mg/dL (8.5-10.1); CREATININE 5.1 mg/dL (0.6-1.3); POTASSIUM 5.1 mmol/L (3.5-5.1)
[2023-03-08] MEDS: Sodium Bicarbonate 100 MEQ in IV 1/2NS 1000 ML 1,000 ML IV SCH (12:07)
[2023-03-08] MEDS: HYDROCODONE/APAP 10/325MG TABLET PO PRN ×2 (13:28→20:18)
[2023-03-08] MEDS: VANCOMYCIN HCL 0.75 GM in IV D5W 250 ML IV SCH (14:00)
[2023-03-08 15:02] LABS: BASOPHILS # (AUTO) 0.1 K/uL (0.0-0.2); BASOPHILS % (AUTO) 0.7 % (0.0-2.0); EOSINOPHILS # (AUTO) 0.3 K/uL (0.0-0.7); EOSINOPHILS % (AUTO) 2.2 % (0.0-6.0); HEMATOCRIT 21 % (39-51); LYMPHOCYTES # (AUTO) 1.6 K/uL (0.8-4.8); LYMPHOCYTES % (AUTO) 10.5 % (20.0-44.0); MEAN CORPUSCULAR HEMOGLOBIN 27 PG (26.0-33.0); MEAN CORPUSCULAR HGB CONC 32 g/dl (31.0-36.0); MEAN CORPUSCULAR VOLUME 84 fL (80-96); MONOCYTES # (AUTO) 0.9 K/uL (0.1-1.30); MONOCYTES % (AUTO) 5.7 % (2.0-12.0); NEUTROPHILS # (AUTO) 12.3 K/uL (1.8-8.9); NEUTROPHILS % (AUTO) 80.9 % (43.0-81.0); PLATELET COUNT (AUTO) 293 K/uL (150-450); RED BLOOD CELL COUNT(AUTO) 2.55 MIL/uL (4.5-6.0); RED CELL DISTRIBUTION WIDTH 17.5 % (11.5-15.0); WHITE BLOOD COUNT (AUTO) 15.2 K/uL (4.3-11.0)
[2023-03-08 15:17] LABS: HEMOGLOBIN 6.9 g/dL (13.5-17.5)
[2023-03-08] MEDS: HYDROMORPHONE 1 MG/1 ML DISP.SYRIN IV PRN ×2 (16:08→22:14)
[2023-03-08] MEDS: TAMSULOSIN 0.4 MG CAP.SR.24H PO SCH (21:14)
[2023-03-08] MEDS: TRAZODONE 50 MG TABLET PO SCH (21:15)
[2023-03-08 22:00] LABS: EOSINOPHILS % (MANUAL) 1 % (0-4); LYMPHOCYTES % (MANUAL) 11 % (16-48); MONOCYTES % (MANUAL) 4 % (0-11.0); NEUTROPHILS % (MANUAL) 84 (42-76); PLATELET ESTIMATE ADEQUATE
[2023-03-08 22:01] LABS: ANISOCYTOSIS 1+; OVALOCYTES 1+; ROULEAUX 1+
[2023-03-09] VITALS: BP 135/78; TEMP 98.1; O2SAT 99
[2023-03-09] MEDS ORDERED: BACLOFEN (10 MG) 10 MG TABLET PO ONE (03:00)
[2023-03-09] MEDS ORDERED: METOCLOPRAMIDE HCL 10 MG/2 ML VIAL IV ONE (03:00)
[2023-03-09 04:00] VITALS: BP 119/61; TEMP 97.9; O2SAT 100
[2023-03-09] MEDS: PIPERACILLIN /TAZOBACTAM 2.25 G in IV D5W 50 ML IV SCH ×4 (05:10→23:56)
[2023-03-09] MEDS: HYDROMORPHONE 1 MG/1 ML DISP.SYRIN IV PRN ×4 (05:12→20:24)
[2023-03-09] MEDS: BLOOD SUGAR DIAGNOSTIC 1 EACH STRIP IN SCH ×4 (06:34→22:25)
[2023-03-09] MEDS: INSULIN REGULAR, HUMAN 100 UNIT/ML 3 ML VIAL SQ PRN ×4 (06:36→22:27)
[2023-03-09 07:48] LABS: BASOPHILS % (AUTO) 0.1 % (0.0-2.0); EOSINOPHILS # (AUTO) 0.5 K/uL (0.0-0.7); EOSINOPHILS % (AUTO) 3.3 % (0.0-6.0); HEMATOCRIT 24 % (39-51); HEMOGLOBIN 7.9 g/dL (13.5-17.5); LYMPHOCYTES # (AUTO) 2.4 K/uL (0.8-4.8); LYMPHOCYTES % (AUTO) 16.1 % (20.0-44.0); MEAN CORPUSCULAR HEMOGLOBIN 28 PG (26.0-33.0); MEAN CORPUSCULAR HGB CONC 33 g/dl (31.0-36.0); MEAN CORPUSCULAR VOLUME 84 fL (80-96); MONOCYTES # (AUTO) 1.1 K/uL (0.1-1.30); MONOCYTES % (AUTO) 7.1 % (2.0-12.0); NEUTROPHILS # (AUTO) 11.1 K/uL (1.8-8.9); NEUTROPHILS % (AUTO) 73.4 % (43.0-81.0); PLATELET COUNT (AUTO) 299 K/uL (150-450); RED BLOOD CELL COUNT(AUTO) 2.89 MIL/uL (4.5-6.0); RED CELL DISTRIBUTION WIDTH 17.5 % (11.5-15.0); WHITE BLOOD COUNT (AUTO) 15.1 K/uL (4.3-11.0)
[2023-03-09 08:20] VITALS: BP 132/57; TEMP 97.9; O2SAT 100
[2023-03-09 08:32] LABS: CALCIUM, SERUM 8.2 mg/dL (8.5-10.1); POTASSIUM 4.8 mmol/L (3.5-5.1)
[2023-03-09] MEDS: Sodium Bicarbonate 100 MEQ in IV 1/2NS 1000 ML 1,000 ML IV SCH (08:39)
[2023-03-09] MEDS: METOPROLOL SUCCINATE 50 MG TAB.SR.24H PO SCH (08:46)
[2023-03-09] MEDS: PANTOPRAZOLE 40 MG TABLET.DR PO SCH (08:46)
[2023-03-09] MEDS: DOCUSATE SODIUM 100 MG CAPSULE PO SCH ×2 (08:47→17:06)
[2023-03-09] MEDS: ATORVASTATIN 40 MG TABLET PO SCH (08:47)
[2023-03-09] MEDS: FOLIC ACID 1 MG TABLET PO SCH (08:47)
[2023-03-09] MEDS: CLONIDINE HCL 0.1 MG TABLET PO SCH (08:47)
[2023-03-09] MEDS: HYDROCODONE/APAP 10/325MG TABLET PO PRN ×2 (08:48→20:22)
[2023-03-09] MEDS: HEPARIN SODIUM, PORCINE 5000 UNITS/1 ML VIAL SQ SCH ×2 (09:00→21:25)
[2023-03-09] MEDS: DAKINS FULL STRENGTH (0.5%) 480 ML BOTTLE TOP SCH (09:03)
[2023-03-09 12:03] VITALS: BP 110/52; TEMP 97.5; O2SAT 98
[2023-03-09 15:56] VITALS: BP 131/65; TEMP 98.6; O2SAT 99
[2023-03-09] MEDS: PROSOURCE / PROSTAT (PYXIS) 30 ML UDC PO SCH (17:07)
[2023-03-09] MEDS: GLUCERNA SHAKE 237 ML CAN PO SCH (17:07)
[2023-03-09] MEDS: VANCOMYCIN HCL 0.75 GM in IV D5W 250 ML IV SCH (18:03)
[2023-03-09 20:00] VITALS: BP 146/60; TEMP 97.7; O2SAT 100
[2023-03-09] MEDS: TAMSULOSIN 0.4 MG CAP.SR.24H PO SCH (21:24)
[2023-03-09] MEDS: TRAZODONE 50 MG TABLET PO SCH (21:24)
[2023-03-10] VITALS: BP 151/75; TEMP 98.2; O2SAT 100
[2023-03-10] MEDS: HYDROMORPHONE 1 MG/1 ML DISP.SYRIN IV PRN ×4 (00:18→21:07)
[2023-03-10] MEDS: Sodium Bicarbonate 100 MEQ in IV 1/2NS 1000 ML 1,000 ML IV SCH ×2 (03:25→22:52)
[2023-03-10 04:00] VITALS: BP 155/66; TEMP 98.1; O2SAT 100
[2023-03-10] MEDS: HYDROCODONE/APAP 10/325MG TABLET PO PRN ×3 (04:47→19:25)
[2023-03-10] MEDS: PIPERACILLIN /TAZOBACTAM 2.25 G in IV D5W 50 ML IV SCH ×4 (05:26→23:17)
[2023-03-10] MEDS: BLOOD SUGAR DIAGNOSTIC 1 EACH STRIP IN SCH ×4 (05:27→21:22)
[2023-03-10] MEDS: INSULIN REGULAR, HUMAN 100 UNIT/ML 3 ML VIAL SQ PRN ×4 (05:51→21:38)
[2023-03-10] MEDS: PANTOPRAZOLE 40 MG TABLET.DR PO SCH (07:34)
[2023-03-10 08:00] VITALS: BP 150/75; TEMP 98.6; O2SAT 99
[2023-03-10] MEDS: GLUCERNA SHAKE 237 ML CAN PO SCH ×3 (08:07→16:51)
[2023-03-10] MEDS: DOCUSATE SODIUM 100 MG CAPSULE PO SCH ×2 (08:28→17:16)
[2023-03-10] MEDS: ATORVASTATIN 40 MG TABLET PO SCH (08:28)
[2023-03-10] MEDS: METOPROLOL SUCCINATE 50 MG TAB.SR.24H PO SCH (08:28)
[2023-03-10] MEDS: FOLIC ACID 1 MG TABLET PO SCH (08:29)
[2023-03-10] MEDS: HEPARIN SODIUM, PORCINE 5000 UNITS/1 ML VIAL SQ SCH ×2 (08:29→21:23)
[2023-03-10] MEDS: CLONIDINE HCL 0.1 MG TABLET PO SCH (08:29)
[2023-03-10] MEDS: DAKINS FULL STRENGTH (0.5%) 480 ML BOTTLE TOP SCH (08:31)
[2023-03-10] MEDS: PROSOURCE / PROSTAT (PYXIS) 30 ML UDC PO SCH ×3 (08:47→16:51)
[2023-03-10 11:10] LABS: CALCIUM, SERUM 8.5 mg/dL (8.5-10.1); CREATININE 3.9 mg/dL (0.6-1.3); POTASSIUM 4.8 mmol/L (3.5-5.1)
[2023-03-10 11:31] LABS: BASOPHILS # (AUTO) 0.1 K/uL (0.0-0.2); BASOPHILS % (AUTO) 0.6 % (0.0-2.0); EOSINOPHILS # (AUTO) 0.3 K/uL (0.0-0.7); HEMATOCRIT 26 % (39-51); HEMOGLOBIN 8.3 g/dL (13.5-17.5); LYMPHOCYTES # (AUTO) 1.5 K/uL (0.8-4.8); LYMPHOCYTES % (AUTO) 11.3 % (20.0-44.0); MEAN CORPUSCULAR HEMOGLOBIN 28 PG (26.0-33.0); MEAN CORPUSCULAR HGB CONC 33 g/dl (31.0-36.0); MEAN CORPUSCULAR VOLUME 85 fL (80-96); MONOCYTES % (AUTO) 7.2 % (2.0-12.0); NEUTROPHILS # (AUTO) 10.7 K/uL (1.8-8.9); NEUTROPHILS % (AUTO) 78.9 % (43.0-81.0); PLATELET COUNT (AUTO) 349 K/uL (150-450); RED BLOOD CELL COUNT(AUTO) 3.01 MIL/uL (4.5-6.0); RED CELL DISTRIBUTION WIDTH 16.8 % (11.5-15.0); WHITE BLOOD COUNT (AUTO) 13.5 K/uL (4.3-11.0)
[2023-03-10] MEDS: ONDANSETRON HCL/PF 4 MG/2 ML VIAL IVP PRN (14:42)
[2023-03-10] MEDS: VANCOMYCIN HCL 0.75 GM in IV D5W 250 ML IV SCH (15:00)
[2023-03-10 15:55] VITALS: BP 147/70; TEMP 98.6; O2SAT 99
[2023-03-10 20:00] VITALS: BP 158/72; TEMP 98; O2SAT 100
[2023-03-10] MEDS: TAMSULOSIN 0.4 MG CAP.SR.24H PO SCH (21:21)
[2023-03-10] MEDS: TRAZODONE 50 MG TABLET PO SCH (21:21)
[2023-03-10] MEDS: INSULIN GLARGINE, 100 UNIT/ML CARTRIDGE SQ SCH (21:36)
[2023-03-11] MEDS: HYDROMORPHONE 1 MG/1 ML DISP.SYRIN IV PRN ×3 (05:05→21:38)
[2023-03-11] MEDS: PIPERACILLIN /TAZOBACTAM 2.25 G in IV D5W 50 ML IV SCH ×3 (05:18→17:32)
[2023-03-11] MEDS: BLOOD SUGAR DIAGNOSTIC 1 EACH STRIP IN SCH ×4 (06:40→22:00)
[2023-03-11] MEDS: INSULIN REGULAR, HUMAN 100 UNIT/ML 3 ML VIAL SQ PRN ×3 (06:41→16:59)
[2023-03-11] MEDS: PANTOPRAZOLE 40 MG TABLET.DR PO SCH (07:56)
[2023-03-11] MEDS: GLUCERNA SHAKE 237 ML CAN PO SCH ×3 (07:56→16:47)
[2023-03-11] MEDS ORDERED: VANCOMYCIN HCL 0.75 GM in IV D5W 250 ML IV SCH (09:00)
[2023-03-11] MEDS: FOLIC ACID 1 MG TABLET PO SCH (09:03)
[2023-03-11] MEDS: DOCUSATE SODIUM 100 MG CAPSULE PO SCH ×2 (09:03→16:46)
[2023-03-11] MEDS: METOPROLOL SUCCINATE 50 MG TAB.SR.24H PO SCH (09:03)
[2023-03-11] MEDS: ATORVASTATIN 40 MG TABLET PO SCH (09:03)
[2023-03-11] MEDS: CLONIDINE HCL 0.1 MG TABLET PO SCH (09:03)
[2023-03-11] MEDS: PROSOURCE / PROSTAT (PYXIS) 30 ML UDC PO SCH ×3 (09:04→16:47)
[2023-03-11] MEDS: HEPARIN SODIUM, PORCINE 5000 UNITS/1 ML VIAL SQ SCH ×2 (09:04→21:00)
[2023-03-11] MEDS: DAKINS FULL STRENGTH (0.5%) 480 ML BOTTLE TOP SCH (09:04)
[2023-03-11 09:22] VITALS: BP 139/56; TEMP 98.6; O2SAT 100
[2023-03-11] MEDS: HYDROCODONE/APAP 10/325MG TABLET PO PRN (09:55)
[2023-03-11] MEDS: ONDANSETRON HCL/PF 4 MG/2 ML VIAL IVP PRN (16:46)
[2023-03-11 18:54] VITALS: BP 154/79; TEMP 98.4; O2SAT 100
[2023-03-11] MEDS: Sodium Bicarbonate 100 MEQ in IV 1/2NS 1000 ML 1,000 ML IV SCH (19:21)
[2023-03-11 19:55] LABS: CALCIUM, SERUM 8.1 mg/dL (8.5-10.1); CREATININE 2.8 mg/dL (0.6-1.3); POTASSIUM 4.6 mmol/L (3.5-5.1)
[2023-03-11 20:00] VITALS: BP 153/64; TEMP 98.4; O2SAT 100
[2023-03-11] MEDS: INSULIN GLARGINE, 100 UNIT/ML CARTRIDGE SQ SCH (22:00)
[2023-03-11] MEDS: TRAZODONE 50 MG TABLET PO SCH (22:05)
[2023-03-11] MEDS: TAMSULOSIN 0.4 MG CAP.SR.24H PO SCH (22:05)
[2023-03-12] MEDS: IV LR 1000 ML 1,000 ML IV PRN ×2 (00:33→18:23)
[2023-03-12] MEDS: PIPERACILLIN /TAZOBACTAM 2.25 G in IV D5W 50 ML IV SCH ×4 (00:33→17:06)
[2023-03-12] MEDS: ONDANSETRON HCL/PF 4 MG/2 ML VIAL IVP PRN (01:16)
[2023-03-12] MEDS: HYDROMORPHONE 1 MG/1 ML DISP.SYRIN IV PRN ×2 (03:35→16:46)
[2023-03-12 06:50] LABS: BASOPHILS # (AUTO) 0.1 K/uL (0.0-0.2); BASOPHILS % (AUTO) 0.7 % (0.0-2.0); EOSINOPHILS # (AUTO) 0.3 K/uL (0.0-0.7); EOSINOPHILS % (AUTO) 1.6 % (0.0-6.0); HEMATOCRIT 25 % (39-51); HEMOGLOBIN 8.3 g/dL (13.5-17.5); LYMPHOCYTES % (AUTO) 11.7 % (20.0-44.0); MEAN CORPUSCULAR HEMOGLOBIN 28 PG (26.0-33.0); MEAN CORPUSCULAR HGB CONC 33 g/dl (31.0-36.0); MEAN CORPUSCULAR VOLUME 85 fL (80-96); MONOCYTES # (AUTO) 0.9 K/uL (0.1-1.30); MONOCYTES % (AUTO) 5.4 % (2.0-12.0); NEUTROPHILS # (AUTO) 13.6 K/uL (1.8-8.9); NEUTROPHILS % (AUTO) 80.6 % (43.0-81.0); PLATELET COUNT (AUTO) 402 K/uL (150-450); RED BLOOD CELL COUNT(AUTO) 2.98 MIL/uL (4.5-6.0); RED CELL DISTRIBUTION WIDTH 17.2 % (11.5-15.0); WHITE BLOOD COUNT (AUTO) 16.9 K/uL (4.3-11.0)
[2023-03-12 07:14] LABS: CREATININE 2.5 mg/dL (0.6-1.3); POTASSIUM 4.6 mmol/L (3.5-5.1)
[2023-03-12 07:25] LABS: INR 1.1 (0.91-1.10); PARTIAL THROMBOPLASTIN TIME 23.9 SEC (24.3-34.3); PROTHROMBIN TIME 11.6 SECS (9.2-11.1)
[2023-03-12] MEDS: PANTOPRAZOLE 40 MG TABLET.DR PO SCH (07:30)
[2023-03-12] MEDS: BLOOD SUGAR DIAGNOSTIC 1 EACH STRIP IN SCH ×4 (07:30→22:17)
[2023-03-12] MEDS: GLUCERNA SHAKE 237 ML CAN PO SCH ×3 (08:00→16:45)
[2023-03-12] MEDS ORDERED: BUPIVACAINE 0.5 % PF 150 MG/30 ML VIAL ONE (08:11)
[2023-03-12] MEDS ORDERED: LIDOCAINE 1% INJ 50 ML MDV IJ ONE (08:11)
[2023-03-12] MEDS ORDERED: VANCOMYCIN 1 GM VIAL ONE (08:51)
[2023-03-12] MEDS: HEPARIN SODIUM, PORCINE 5000 UNITS/1 ML VIAL SQ SCH ×2 (09:00→21:56)
[2023-03-12] MEDS: DAKINS FULL STRENGTH (0.5%) 480 ML BOTTLE TOP SCH (09:00)
[2023-03-12] MEDS: DOCUSATE SODIUM 100 MG CAPSULE PO SCH ×2 (09:00→16:44)
[2023-03-12] MEDS ORDERED: VANCOMYCIN HCL 0.75 GM in IV D5W 250 ML IV SCH (09:00)
[2023-03-12] MEDS: PROSOURCE / PROSTAT (PYXIS) 30 ML UDC PO SCH ×3 (09:00→16:44)
[2023-03-12] MEDS: METOPROLOL SUCCINATE 50 MG TAB.SR.24H PO SCH (09:00)
[2023-03-12] MEDS: CLONIDINE HCL 0.1 MG TABLET PO SCH (09:00)
[2023-03-12] MEDS: ATORVASTATIN 40 MG TABLET PO SCH (09:00)
[2023-03-12] MEDS: FOLIC ACID 1 MG TABLET PO SCH (09:00)
[2023-03-12 09:52] VITALS: BP 169/78; TEMP 98.1; O2SAT 100
[2023-03-12] MEDS: INSULIN REGULAR, HUMAN 100 UNIT/ML 3 ML VIAL SQ PRN ×3 (12:13→22:19)
[2023-03-12] MEDS: VANCOMYCIN HCL 0.75 GM in IV D5W 250 ML IV SCH (14:44)
[2023-03-12 20:00] VITALS: BP 124/62; TEMP 98.8; O2SAT 100
[2023-03-12] MEDS: TAMSULOSIN 0.4 MG CAP.SR.24H PO SCH (21:57)
[2023-03-12] MEDS: HYDROCODONE/APAP 10/325MG TABLET PO PRN (21:59)
[2023-03-12] MEDS: TRAZODONE 50 MG TABLET PO SCH (21:59)
[2023-03-12] MEDS: INSULIN GLARGINE, 100 UNIT/ML CARTRIDGE SQ SCH (22:19)
[2023-03-13] VITALS (7 sets, daily range): BP systolic 115–131; BP diastolic 56–65; TEMP 97.6–98.1; O2SAT 95–99
[2023-03-13] MEDS: PIPERACILLIN /TAZOBACTAM 2.25 G in IV D5W 50 ML IV SCH ×5 (00:22→23:57)
[2023-03-13] MEDS: HYDROMORPHONE 1 MG/1 ML DISP.SYRIN IV PRN ×3 (00:33→17:36)
[2023-03-13] MEDS: BLOOD SUGAR DIAGNOSTIC 1 EACH STRIP IN SCH ×4 (06:36→21:56)
[2023-03-13] MEDS: INSULIN REGULAR, HUMAN 100 UNIT/ML 3 ML VIAL SQ PRN ×4 (06:37→22:09)
[2023-03-13 07:15] LABS: BASOPHILS # (AUTO) 0.1 K/uL (0.0-0.2); BASOPHILS % (AUTO) 0.6 % (0.0-2.0); EOSINOPHILS # (AUTO) 0.3 K/uL (0.0-0.7); EOSINOPHILS % (AUTO) 2.2 % (0.0-6.0); LYMPHOCYTES # (AUTO) 2.4 K/uL (0.8-4.8); LYMPHOCYTES % (AUTO) 19.1 % (20.0-44.0); MEAN CORPUSCULAR HEMOGLOBIN 28 PG (26.0-33.0); MEAN CORPUSCULAR HGB CONC 32 g/dl (31.0-36.0); MEAN CORPUSCULAR VOLUME 85 fL (80-96); MONOCYTES # (AUTO) 0.8 K/uL (0.1-1.30); MONOCYTES % (AUTO) 6.3 % (2.0-12.0); NEUTROPHILS # (AUTO) 9.1 K/uL (1.8-8.9); NEUTROPHILS % (AUTO) 71.8 % (43.0-81.0); PLATELET COUNT (AUTO) 346 K/uL (150-450); RED BLOOD CELL COUNT(AUTO) 2.34 MIL/uL (4.5-6.0); RED CELL DISTRIBUTION WIDTH 17.4 % (11.5-15.0); WHITE BLOOD COUNT (AUTO) 12.7 K/uL (4.3-11.0)
[2023-03-13 07:24] LABS: HEMATOCRIT 20 % (39-51); HEMOGLOBIN 6.4 g/dL (13.5-17.5)
[2023-03-13 07:29] LABS: CALCIUM, SERUM 8.4 mg/dL (8.5-10.1); CREATININE 2.4 mg/dL (0.6-1.3); POTASSIUM 4.5 mmol/L (3.5-5.1)
[2023-03-13] MEDS: CLONIDINE HCL 0.1 MG TABLET PO SCH (08:37)
[2023-03-13] MEDS: FOLIC ACID 1 MG TABLET PO SCH (08:37)
[2023-03-13] MEDS: DOCUSATE SODIUM 100 MG CAPSULE PO SCH ×2 (08:37→17:07)
[2023-03-13] MEDS: ATORVASTATIN 40 MG TABLET PO SCH (08:37)
[2023-03-13] MEDS: PANTOPRAZOLE 40 MG TABLET.DR PO SCH (08:37)
[2023-03-13] MEDS: METOPROLOL SUCCINATE 50 MG TAB.SR.24H PO SCH (08:38)
[2023-03-13] MEDS: PROSOURCE / PROSTAT (PYXIS) 30 ML UDC PO SCH ×3 (08:40→17:07)
[2023-03-13] MEDS: GLUCERNA SHAKE 237 ML CAN PO SCH ×3 (08:40→17:07)
[2023-03-13] MEDS: DAKINS FULL STRENGTH (0.5%) 480 ML BOTTLE TOP SCH (09:00)
[2023-03-13] MEDS: HYDROCODONE/APAP 10/325MG TABLET PO PRN (13:00)
[2023-03-13 14:13] LABS: EOSINOPHILS % (MANUAL) 3 % (0-4); LYMPHOCYTES % (MANUAL) 15 % (16-48); MONOCYTES % (MANUAL) 5 % (0-11.0); NEUTROPHILS % (MANUAL) 77 (42-76); PLATELET ESTIMATE ADEQUATE
[2023-03-13] MEDS: IV LR 1000 ML 1,000 ML IV PRN (14:31)
[2023-03-13 20:32] LABS: HEMOGLOBIN 7.8 g/dL (13.5-17.5)
[2023-03-13] MEDS: TRAZODONE 50 MG TABLET PO SCH (21:56)
[2023-03-13] MEDS: TAMSULOSIN 0.4 MG CAP.SR.24H PO SCH (21:56)
[2023-03-13] MEDS: INSULIN GLARGINE, 100 UNIT/ML CARTRIDGE SQ SCH (22:07)
[2023-03-14 01:16] VITALS: BP 125/59
[2023-03-14] MEDS: HYDROMORPHONE 1 MG/1 ML DISP.SYRIN IV PRN ×4 (01:18→23:28)
[2023-03-14] MEDS: VANCOMYCIN HCL 0.75 GM in IV D5W 250 ML IV SCH (02:28)
[2023-03-14] MEDS: PIPERACILLIN /TAZOBACTAM 2.25 G in IV D5W 50 ML IV SCH ×4 (05:52→23:34)
[2023-03-14] MEDS: BLOOD SUGAR DIAGNOSTIC 1 EACH STRIP IN SCH ×4 (06:42→22:34)
[2023-03-14] MEDS: INSULIN REGULAR, HUMAN 100 UNIT/ML 3 ML VIAL SQ PRN ×4 (06:46→22:44)
[2023-03-14 07:58] LABS: CALCIUM, SERUM 8.3 mg/dL (8.5-10.1); CREATININE 2.2 mg/dL (0.6-1.3); POTASSIUM 4.5 mmol/L (3.5-5.1)
[2023-03-14 08:00] VITALS: BP 128/67; TEMP 98.6; O2SAT 99
[2023-03-14] MEDS: GLUCERNA SHAKE 237 ML CAN PO SCH ×3 (08:00→17:53)
[2023-03-14] MEDS: DAKINS FULL STRENGTH (0.5%) 480 ML BOTTLE TOP SCH (09:00)
[2023-03-14] MEDS: ATORVASTATIN 40 MG TABLET PO SCH (10:26)
[2023-03-14] MEDS: FOLIC ACID 1 MG TABLET PO SCH (10:26)
[2023-03-14] MEDS: METOPROLOL SUCCINATE 50 MG TAB.SR.24H PO SCH (10:26)
[2023-03-14] MEDS: DOCUSATE SODIUM 100 MG CAPSULE PO SCH ×2 (10:26→18:06)
[2023-03-14] MEDS: CLONIDINE HCL 0.1 MG TABLET PO SCH (10:26)
[2023-03-14] MEDS: PANTOPRAZOLE 40 MG TABLET.DR PO SCH (10:27)
[2023-03-14] MEDS: PROSOURCE / PROSTAT (PYXIS) 30 ML UDC PO SCH ×3 (10:29→18:05)
[2023-03-14] MEDS: ONDANSETRON HCL/PF 4 MG/2 ML VIAL IVP PRN (11:00)
[2023-03-14] MEDS: HYDROCODONE/APAP 10/325MG TABLET PO PRN (13:19)
[2023-03-14 16:00] VITALS: BP 132/70; TEMP 98.2; O2SAT 99
[2023-03-14 20:00] VITALS: BP 136/66; TEMP 97.9; O2SAT 96
[2023-03-14] MEDS: TRAZODONE 50 MG TABLET PO SCH (22:33)
[2023-03-14] MEDS: TAMSULOSIN 0.4 MG CAP.SR.24H PO SCH (22:33)
[2023-03-14] MEDS: INSULIN GLARGINE, 100 UNIT/ML CARTRIDGE SQ SCH (22:43)
[2023-03-14] MEDS: IV LR 1000 ML 1,000 ML IV PRN (23:33)
[2023-03-15 05:35] VITALS: BP 136/66; O2SAT 98
[2023-03-15] MEDS: HYDROMORPHONE 1 MG/1 ML DISP.SYRIN IV PRN ×3 (05:42→19:53)
[2023-03-15] MEDS: PIPERACILLIN /TAZOBACTAM 2.25 G in IV D5W 50 ML IV SCH ×4 (05:43→23:32)
[2023-03-15] MEDS: INSULIN REGULAR, HUMAN 100 UNIT/ML 3 ML VIAL SQ PRN ×4 (07:01→21:17)
[2023-03-15] MEDS: BLOOD SUGAR DIAGNOSTIC 1 EACH STRIP IN SCH ×4 (07:02→21:12)
[2023-03-15 07:20] LABS: BASOPHILS # (AUTO) 0.1 K/uL (0.0-0.2); BASOPHILS % (AUTO) 0.8 % (0.0-2.0); EOSINOPHILS # (AUTO) 0.2 K/uL (0.0-0.7); EOSINOPHILS % (AUTO) 1.9 % (0.0-6.0); HEMATOCRIT 23 % (39-51); HEMOGLOBIN 7.5 g/dL (13.5-17.5); LYMPHOCYTES # (AUTO) 1.6 K/uL (0.8-4.8); LYMPHOCYTES % (AUTO) 15.4 % (20.0-44.0); MEAN CORPUSCULAR HEMOGLOBIN 29 PG (26.0-33.0); MEAN CORPUSCULAR HGB CONC 33 g/dl (31.0-36.0); MEAN CORPUSCULAR VOLUME 86 fL (80-96); MONOCYTES # (AUTO) 0.7 K/uL (0.1-1.30); MONOCYTES % (AUTO) 6.9 % (2.0-12.0); NEUTROPHILS # (AUTO) 7.9 K/uL (1.8-8.9); PLATELET COUNT (AUTO) 339 K/uL (150-450); RED BLOOD CELL COUNT(AUTO) 2.61 MIL/uL (4.5-6.0); RED CELL DISTRIBUTION WIDTH 16.7 % (11.5-15.0); WHITE BLOOD COUNT (AUTO) 10.5 K/uL (4.3-11.0)
[2023-03-15 07:30] VITALS: BP 127/65; TEMP 98.8; O2SAT 100
[2023-03-15 08:03] LABS: CALCIUM, SERUM 8.1 mg/dL (8.5-10.1); POTASSIUM 4.6 mmol/L (3.5-5.1)
[2023-03-15] MEDS: PANTOPRAZOLE 40 MG TABLET.DR PO SCH (08:56)
[2023-03-15] MEDS: CLONIDINE HCL 0.1 MG TABLET PO SCH (08:56)
[2023-03-15] MEDS: ATORVASTATIN 40 MG TABLET PO SCH (08:56)
[2023-03-15] MEDS: FOLIC ACID 1 MG TABLET PO SCH (08:56)
[2023-03-15] MEDS: DOCUSATE SODIUM 100 MG CAPSULE PO SCH ×2 (08:56→17:19)
[2023-03-15] MEDS: METOPROLOL SUCCINATE 50 MG TAB.SR.24H PO SCH (08:57)
[2023-03-15] MEDS: DAKINS FULL STRENGTH (0.5%) 480 ML BOTTLE TOP SCH (08:57)
[2023-03-15] MEDS: GLUCERNA SHAKE 237 ML CAN PO SCH ×3 (08:57→17:22)
[2023-03-15] MEDS: PROSOURCE / PROSTAT (PYXIS) 30 ML UDC PO SCH ×3 (09:00→17:00)
[2023-03-15] MEDS: VANCOMYCIN HCL 0.75 GM in IV D5W 250 ML IV SCH (14:06)
[2023-03-15] MEDS: HYDROCODONE/APAP 10/325MG TABLET PO PRN ×2 (15:34→22:50)
[2023-03-15 16:00] VITALS: BP 140/64; TEMP 97.5; O2SAT 100
[2023-03-15] MEDS: TAMSULOSIN 0.4 MG CAP.SR.24H PO SCH (21:04)
[2023-03-15] MEDS: TRAZODONE 50 MG TABLET PO SCH (21:04)
[2023-03-15] MEDS: INSULIN GLARGINE, 100 UNIT/ML CARTRIDGE SQ SCH (21:18)
[2023-03-16] MEDS: PIPERACILLIN /TAZOBACTAM 2.25 G in IV D5W 50 ML IV SCH ×3 (05:43→17:44)
[2023-03-16] MEDS: HYDROMORPHONE 1 MG/1 ML DISP.SYRIN IV PRN ×3 (06:02→20:01)
[2023-03-16] MEDS: BLOOD SUGAR DIAGNOSTIC 1 EACH STRIP IN SCH ×4 (06:34→21:41)
[2023-03-16] MEDS: INSULIN REGULAR, HUMAN 100 UNIT/ML 3 ML VIAL SQ PRN ×4 (06:48→21:48)
[2023-03-16 07:10] LABS: CALCIUM, SERUM 8.2 mg/dL (8.5-10.1); CREATININE 2.1 mg/dL (0.6-1.3); POTASSIUM 4.7 mmol/L (3.5-5.1)
[2023-03-16] MEDS: ATORVASTATIN 40 MG TABLET PO SCH (08:10)
[2023-03-16] MEDS: PANTOPRAZOLE 40 MG TABLET.DR PO SCH (08:10)
[2023-03-16] MEDS: FOLIC ACID 1 MG TABLET PO SCH (08:10)
[2023-03-16] MEDS: DOCUSATE SODIUM 100 MG CAPSULE PO SCH ×2 (08:10→16:42)
[2023-03-16] MEDS: CLONIDINE HCL 0.1 MG TABLET PO SCH (08:11)
[2023-03-16] MEDS: METOPROLOL SUCCINATE 50 MG TAB.SR.24H PO SCH (08:11)
[2023-03-16] MEDS: PROSOURCE / PROSTAT (PYXIS) 30 ML UDC PO SCH ×3 (08:12→16:44)
[2023-03-16] MEDS: DAKINS FULL STRENGTH (0.5%) 480 ML BOTTLE TOP SCH (08:13)
[2023-03-16] MEDS: GLUCERNA SHAKE 237 ML CAN PO SCH ×3 (08:13→16:44)
[2023-03-16 08:30] VITALS: BP 122/57; TEMP 99.1; O2SAT 100
[2023-03-16] MEDS: HYDROCODONE/APAP 10/325MG TABLET PO PRN ×2 (09:48→16:43)
[2023-03-16 16:40] VITALS: BP 131/63; TEMP 98.1; O2SAT 97
[2023-03-16] MEDS: ONDANSETRON HCL/PF 4 MG/2 ML VIAL IVP PRN (16:43)
[2023-03-16 20:00] VITALS: BP 137/72; TEMP 99; O2SAT 100
[2023-03-16] MEDS: TRAZODONE 50 MG TABLET PO SCH (21:31)
[2023-03-16] MEDS: TAMSULOSIN 0.4 MG CAP.SR.24H PO SCH (21:31)
[2023-03-16] MEDS: INSULIN GLARGINE, 100 UNIT/ML CARTRIDGE SQ SCH (21:43)
[2023-03-17] MEDS: PIPERACILLIN /TAZOBACTAM 2.25 G in IV D5W 50 ML IV SCH ×4 (00:21→17:18)
[2023-03-17] MEDS: VANCOMYCIN HCL 0.75 GM in IV D5W 250 ML IV SCH (02:15)
[2023-03-17] MEDS: INSULIN REGULAR, HUMAN 100 UNIT/ML 3 ML VIAL SQ PRN ×4 (06:26→21:31)
[2023-03-17] MEDS: BLOOD SUGAR DIAGNOSTIC 1 EACH STRIP IN SCH ×4 (06:49→21:32)
[2023-03-17 07:27] LABS: CALCIUM, SERUM 8.3 mg/dL (8.5-10.1); CREATININE 2.1 mg/dL (0.6-1.3); POTASSIUM 4.5 mmol/L (3.5-5.1)
[2023-03-17] MEDS: HYDROMORPHONE 1 MG/1 ML DISP.SYRIN IV PRN ×3 (08:15→21:57)
[2023-03-17] MEDS: DOCUSATE SODIUM 100 MG CAPSULE PO SCH ×2 (08:15→16:13)
[2023-03-17] MEDS: FOLIC ACID 1 MG TABLET PO SCH (08:15)
[2023-03-17] MEDS: ATORVASTATIN 40 MG TABLET PO SCH (08:15)
[2023-03-17] MEDS: PANTOPRAZOLE 40 MG TABLET.DR PO SCH (08:15)
[2023-03-17] MEDS: GLUCERNA SHAKE 237 ML CAN PO SCH ×3 (08:16→16:24)
[2023-03-17] MEDS: PROSOURCE / PROSTAT (PYXIS) 30 ML UDC PO SCH ×3 (08:16→16:24)
[2023-03-17] MEDS: CLONIDINE HCL 0.1 MG TABLET PO SCH (08:20)
[2023-03-17] MEDS: METOPROLOL SUCCINATE 50 MG TAB.SR.24H PO SCH (08:20)
[2023-03-17] MEDS: DAKINS FULL STRENGTH (0.5%) 480 ML BOTTLE TOP SCH (09:53)
[2023-03-17 10:16] VITALS: BP 131/62; TEMP 98.1; O2SAT 100
[2023-03-17] MEDS: HYDROCODONE/APAP 10/325MG TABLET PO PRN (12:41)
[2023-03-17 20:00] VITALS: BP 132/67; TEMP 98.1; O2SAT 100
[2023-03-17] MEDS: TAMSULOSIN 0.4 MG CAP.SR.24H PO SCH (21:25)
[2023-03-17] MEDS: TRAZODONE 50 MG TABLET PO SCH (21:25)
[2023-03-17] MEDS: INSULIN GLARGINE, 100 UNIT/ML CARTRIDGE SQ SCH (21:32)
[2023-03-18] MEDS: PIPERACILLIN /TAZOBACTAM 2.25 G in IV D5W 50 ML IV SCH ×3 (00:20→12:13)
[2023-03-18] MEDS: HYDROCODONE/APAP 10/325MG TABLET PO PRN ×2 (00:27→06:30)
[2023-03-18] MEDS: BLOOD SUGAR DIAGNOSTIC 1 EACH STRIP IN SCH ×2 (06:30→12:06)
[2023-03-18] MEDS: INSULIN REGULAR, HUMAN 100 UNIT/ML 3 ML VIAL SQ PRN ×2 (06:37→12:03)
[2023-03-18 07:06] LABS: BASOPHILS # (AUTO) 0.1 K/uL (0.0-0.2); EOSINOPHILS # (AUTO) 0.3 K/uL (0.0-0.7); EOSINOPHILS % (AUTO) 3.9 % (0.0-6.0); HEMATOCRIT 23 % (39-51); HEMOGLOBIN 7.5 g/dL (13.5-17.5); LYMPHOCYTES # (AUTO) 1.7 K/uL (0.8-4.8); LYMPHOCYTES % (AUTO) 21.4 % (20.0-44.0); MEAN CORPUSCULAR HEMOGLOBIN 28 PG (26.0-33.0); MEAN CORPUSCULAR HGB CONC 32 g/dl (31.0-36.0); MEAN CORPUSCULAR VOLUME 88 fL (80-96); MONOCYTES # (AUTO) 0.6 K/uL (0.1-1.30); MONOCYTES % (AUTO) 7.1 % (2.0-12.0); NEUTROPHILS # (AUTO) 5.3 K/uL (1.8-8.9); NEUTROPHILS % (AUTO) 66.6 % (43.0-81.0); PLATELET COUNT (AUTO) 352 K/uL (150-450); RED BLOOD CELL COUNT(AUTO) 2.65 MIL/uL (4.5-6.0); RED CELL DISTRIBUTION WIDTH 17.1 % (11.5-15.0); WHITE BLOOD COUNT (AUTO) 7.9 K/uL (4.3-11.0)
[2023-03-18 07:37] LABS: CALCIUM, SERUM 8.2 mg/dL (8.5-10.1); CREATININE 2.1 mg/dL (0.6-1.3); POTASSIUM 4.9 mmol/L (3.5-5.1)
[2023-03-18 08:00] VITALS: BP 122/62; TEMP 97.9; O2SAT 100
[2023-03-18] MEDS: PANTOPRAZOLE 40 MG TABLET.DR PO SCH (08:26)
[2023-03-18] MEDS: GLUCERNA SHAKE 237 ML CAN PO SCH ×2 (08:27→12:07)
[2023-03-18] MEDS: ATORVASTATIN 40 MG TABLET PO SCH (09:52)
[2023-03-18] MEDS: METOPROLOL SUCCINATE 50 MG TAB.SR.24H PO SCH (09:52)
[2023-03-18] MEDS: PROSOURCE / PROSTAT (PYXIS) 30 ML UDC PO SCH ×2 (09:52→12:13)
[2023-03-18 09:53] VITALS: BP 122/62
[2023-03-18] MEDS: DAKINS FULL STRENGTH (0.5%) 480 ML BOTTLE TOP SCH (09:53)
[2023-03-18] MEDS: DOCUSATE SODIUM 100 MG CAPSULE PO SCH (09:53)
[2023-03-18] MEDS: CLONIDINE HCL 0.1 MG TABLET PO SCH (09:53)
[2023-03-18] MEDS: FOLIC ACID 1 MG TABLET PO SCH (09:53)
[2023-03-18] MEDS ORDERED: INSU100V28 SQ (10:51)
[2023-03-18] MEDS ORDERED: MAGN400O6 PO (10:51)
[2023-03-18] MEDS ORDERED: PANT40TA49 PO (10:51)
[2023-03-18] MEDS ORDERED: Blood Sugar Diagnostic IN (10:51)
[2023-03-18] MEDS ORDERED: SODI473S9 TOP (10:51)
[2023-03-18] MEDS ORDERED: HYDR-3980 PO (10:51)
[2023-03-18] MEDS ORDERED: Tamsulosin PO (10:51)
[2023-03-18] MEDS ORDERED: NUT.237L45 PO (10:51)
[2023-03-18] MEDS ORDERED: VANC750F2 IV (10:51)
[2023-03-18] MEDS ORDERED: Prosource PO (10:51)
[2023-03-18] MEDS ORDERED: Insulin Glargine,Hum SQ (10:51)
[2023-03-18] MEDS: HYDROMORPHONE 1 MG/1 ML DISP.SYRIN IV PRN (12:06)
[2023-03-18] MEDS: VANCOMYCIN HCL 0.75 GM in IV D5W 250 ML IV SCH (14:07)
== END 2023-03-18 15:50 | DRG 239 ==
LOC: ER 12:43 → MED 22:45 → TELE 23:00 → MED 03-10 09:55
PROVIDERS: ADMIT Nurse Practitioner Acute Care; ATTEND Nurse Practitioner Acute Care
PROC: 0Y6M0Z9 Detachment at Right Foot, Partial 1st Ray, Open Approach (ICD-10-PCS; principal; 2023-03-06)
PROC: 0Y6M0ZB Detachment at Right Foot, Partial 2nd Ray, Open Approach (ICD-10-PCS; 2023-03-06)
PROC: 0Y6M0ZC Detachment at Right Foot, Partial 3rd Ray, Open Approach (ICD-10-PCS; 2023-03-06)
PROC: 0Y6M0ZD Detachment at Right Foot, Partial 4th Ray, Open Approach (ICD-10-PCS; 2023-03-06)
PROC: 0Y6M0ZF Detachment at Right Foot, Partial 5th Ray, Open Approach (ICD-10-PCS; 2023-03-06)
PROC: 0KBV0ZZ Excision of Right Foot Muscle, Open Approach (ICD-10-PCS; 2023-03-07)
PROC: 30233N1 Transfusion of Nonautologous Red Blood Cells into Peripheral Vein, Percutaneous Approach (ICD-10-PCS; 2023-03-07)
PROC: 05H533Z Insertion of Infusion Device into Right Subclavian Vein, Percutaneous Approach (ICD-10-PCS; 2023-03-10)
PROC: B546ZZA Ultrasonography of Right Subclavian Vein, Guidance (ICD-10-PCS; 2023-03-10)
PROC: 0HRMXK3 Replacement of Right Foot Skin with Nonautologous Tissue Substitute, Full Thickness, External Approach (ICD-10-PCS; 2023-03-12)
PROC: 0QBN0ZZ Excision of Right Metatarsal, Open Approach (ICD-10-PCS; 2023-03-12)
PROC: 0L8N0ZZ Division of Right Lower Leg Tendon, Open Approach (ICD-10-PCS; 2023-03-12)
DX: E11.52 Type 2 diabetes mellitus with diabetic peripheral angiopathy with gangrene (principal); A48.0 Gas gangrene; I21.A1 Myocardial infarction type 2; N17.0 Acute kidney failure with tubular necrosis; E44.0 Moderate protein-calorie malnutrition; E87.1 Hypo-osmolality and hyponatremia; I13.0 Hypertensive heart and chronic kidney disease with heart failure and stage 1 through stage 4 chronic kidney disease, or unspecified chronic kidney disease; M86.8X7 Other osteomyelitis, ankle and foot; D62 Acute posthemorrhagic anemia; L02.611 Cutaneous abscess of right foot; N18.4 Chronic kidney disease, stage 4 (severe); L03.115 Cellulitis of right lower limb; L97.518 Non-pressure chronic ulcer of other part of right foot with other specified severity; E11.69 Type 2 diabetes mellitus with other specified complication; E11.22 Type 2 diabetes mellitus with diabetic chronic kidney disease; E11.621 Type 2 diabetes mellitus with foot ulcer; E11.622 Type 2 diabetes mellitus with other skin ulcer; I50.9 Heart failure, unspecified; D72.829 Elevated white blood cell count, unspecified; E11.42 Type 2 diabetes mellitus with diabetic polyneuropathy; E11.65 Type 2 diabetes mellitus with hyperglycemia; E88.09 Other disorders of plasma-protein metabolism, not elsewhere classified; I25.10 Atherosclerotic heart disease of native coronary artery without angina pectoris; I48.91 Unspecified atrial fibrillation; M89.8X9 Other specified disorders of bone, unspecified site; N40.0 Benign prostatic hyperplasia without lower urinary tract symptoms; Z79.4 Long term (current) use of insulin; Z91.199 Patient's noncompliance with other medical treatment and regimen due to unspecified reason; Z95.0 Presence of cardiac pacemaker; E78.5 Hyperlipidemia, unspecified; Z98.62 Peripheral vascular angioplasty status
CPT/HCPCS: 36415; 71045-TC; 73630-TC; 73700-TC; 76770-TC; 80048-TC; 80076-TC; 80202-TC; 81001; 82570-TC; 82962-TC; 83605-TC; 84300-TC; 84484-TC; 85025-TC; 85027-TC; 85610-TC; 85730-TC; 86803; 86850-TC; 87040-TC; 87081-TC; 87806; 88305-TC; 88311-TC; 88312-TC; 92526; 92611-TC; 93307-TC; 93926-TC; 97112-TC; 97530-TC; A4217; A4223; A6253; A6403; A6407; G0378; G0463; J0690; J1170; J1644; J1815; J2405; J2543; J2704; J2765; J3370; J3490; J7030; J7040; J7050; J7060; J7120; P9016; Q4100